=== PATIENT | male | born 1985 | race Caucasian/White ===

== ENCOUNTER 2020-08-10 00:51 | Observation (INO) ==
[2020-08-10 02:04] LABS: Bacteria,Urine Few per hpf (None-Few); Bilirubin,Urine Negative (Negative); Blood,Urine Small (Negative); Clarity,Urine Clear (Clear); Color,Urine Yellow (Yellow); Glucose,Urine (UA) Normal (Normal); Ketones,Urine Negative (Negative); Leukocyte Esterase,Urine Negative (Negative); Nitrite,Urine Negative (Negative); Protein,Urine Negative (Neg-Trace); RBC,Urine 30-50 per hpf (0-3); Specific Gravity,Urine 1.014 (1.010-1.025)
[2020-08-10 02:07] LABS: Basophils % 0.4 %; Eosinophils # 0.5 K/mcL (0.0-0.6); Eosinophils % 5.4 %; Hematocrit 39.7 % (37.5-50.1); Hemoglobin 12.1 g/dL (12.9-16.9); Immature Granulocytes % 0.2 % (0-4); Lymphocytes # 2.9 K/mcL (0.6-4.6); Lymphocytes % 32.3 %; Mean Corpuscular HGB Conc 30.5 g/dL (31.6-35.5); Mean Corpuscular Hemoglobin 24.1 pg (28.0-33.3); Mean Corpuscular Volume 79.1 fL (83.0-100.0); Mean Platelet Volume 7.9 fL (9.4-12.4); Monocytes # 0.6 K/mcL (0.0-1.3); Monocytes % 6.8 %; Platelet Count 669 K/mcL (140-400); Red Blood Count 5.02 M/mcL (4.19-5.50); Red Cell Distribution Width 22.6 % (11.5-14.5); Segmented Neutrophils % 54.9 %; White Blood Count 9.1 K/mcL (4.3-11.1)
[2020-08-10 02:13] LABS: Amphetamine Screen,Urine Positive ng/mL (Cutoff=1000); Barbiturate Screen,Urine Negative ng/mL (Cutoff=200); Benzodiazepines Screen,Urine Negative ng/mL (Cutoff=200); Cannabinoid Screen,Urine Positive ng/mL (Cutoff = 50); Cocaine Screen,Urine Negative ng/mL (Cutoff= 300); Opiate Screen,Urine Negative ng/mL (Cutoff=300); Phencyclidine Screen,Urine Negative ng/mL (Cutoff=25)
[2020-08-10 02:23] LABS: Acetaminophen < 10 mcg/mL (10-20); Alanine Aminotransferase 16 Units/L (7-52); Albumin 4.2 g/dL (3.5-5.7); Albumin/Globulin Ratio 1.2 (1.1-2.2); Alkaline Phosphatase 139 Units/L (34-104); Aspartate Amino Transferase 20 Units/L (13-39); BUN/Creatinine Ratio 8 (6-26); Bilirubin,Direct 0.2 mg/dL (0.0-0.2); Bilirubin,Indirect 0.5 mg/dL (0.0-1.0); Bilirubin,Total 0.7 mg/dL (0.3-1.0); Blood Urea Nitrogen 7 mg/dL (6-20); Calcium 9.7 mg/dL (8.6-10.3); Carbon Dioxide 29 mEq/L (23-29); Chloride 101 mEq/L (98-107); Ethanol < 10 mg/dL (Less than 10); Globulin 3.5 g/dL (2.4-3.5); Glucose 155 mg/dL (70-105); Osmolality,Calculated 287 (280-300); Potassium 3.7 mEq/L (3.5-5.1); Salicylate < 2.5 mg/dL (15.0-30.0); Sodium 138 mEq/L (136-145); Total Protein 7.7 g/dL (6.4-8.9); eGFR For African Americans > 60 (> 60); eGFR For Non-African Americans > 60 (> 60)
[2020-08-10] MEDS ORDERED: *HR* LORazepam 2 MG/ML VIAL ONE (03:57)
[2020-08-10] MEDS ORDERED: *HR* LORazepam 2 MG/ML VIAL IM STA (03:58)
[2020-08-10] MEDS ORDERED: Naloxone 0.4 MG/ML INJ IVP PRN (04:23)
[2020-08-10] MEDS ORDERED: D5% in Water 1,000 ML IVC PRN (07:52)
[2020-08-10] MEDS ORDERED: *HR* Dextrose 50 % in Water (Vial) 50 ML VIAL IVP PRN (07:52)
[2020-08-10] MEDS ORDERED: Dextrose Gel 15 GM/37.5 ML TUBE PO PRN ×2 (07:52)
[2020-08-10] MEDS ORDERED: *HR* LORazepam 2 MG/ML VIAL IVP PRN (08:44)
[2020-08-10 09:37] LABS: VBG HCO3 28 mEq/L (21-27); VBG PCO2 48 mmHg (41-51); VBG PH 7.38 pH Units (7.32-7.42); VBG PO2 153 mmHg (25-50)
[2020-08-10] MEDS: Ampicillin/Sulbactam 3,000 MG in 0.9 % Sodium Chloride Mini Bag 100 ML IVPB SCH ×4 (09:39→23:34)
[2020-08-10 10:08] LABS: Thyroid Stimulating Hormone 2.936 mcIU/mL (0.340-5.600)
[2020-08-10 10:29] LABS: Folate > 22.3 ng/mL (3.0-16.0); Vitamin B12 291 pg/mL (250-1100)
[2020-08-10] MEDS ORDERED: diazePAM 10 MG/2 ML SYRINGE IVP STA (15:29)
[2020-08-10] MEDS ORDERED: Dexmedetomidine HCl 400 MCG/100 ML MLS IVC SCH (15:45)
[2020-08-10] MEDS: Gabapentin 400 MG CAPSULE PO SCH ×2 (17:16→21:05)
[2020-08-10] MEDS: *HR* OxyCODONE/APAP 10/325 TABLET PO PRN ×2 (17:16→23:33)
[2020-08-10] MEDS: *HR* Heparin 5,000 UNIT/ML VIAL SQ SCH (17:49)
[2020-08-10] MEDS ORDERED: diazePAM 10 MG/2 ML SYRINGE IVP PRN (20:36)
[2020-08-10] MEDS ORDERED: Melatonin 3 MG TABLET PO PRN (21:27)
[2020-08-10] MEDS: Nicotine 14 MG PATCH.TD24 TD SCH (21:50)
[2020-08-10] MEDS ORDERED: CloNIDine Patch 0.2 MG PATCH (WEEKLY) TD SCH (23:00)
[2020-08-11] MEDS: Ampicillin/Sulbactam 3,000 MG in 0.9 % Sodium Chloride Mini Bag 100 ML IVPB SCH ×2 (05:33→11:42)
[2020-08-11] MEDS: *HR* OxyCODONE/APAP 10/325 TABLET PO PRN ×2 (05:36→11:42)
[2020-08-11] MEDS: *HR* Heparin 5,000 UNIT/ML VIAL SQ SCH (06:05)
[2020-08-11 06:48] LABS: % Iron Saturation 6 % (20-55); Iron 25 mcg/dL (65-175); Transferrin 282 mg/dL (203-362)
[2020-08-11 07:06] LABS: Ferritin 42 ng/mL (20-250)
[2020-08-11] MEDS ORDERED: *HR* Buprenorphine HCl 8 MG TAB.SUBL SL SCH (09:00)
[2020-08-11] MEDS: Nicotine 14 MG PATCH.TD24 TD SCH (09:08)
[2020-08-11] MEDS: Gabapentin 400 MG CAPSULE PO SCH ×2 (09:09→14:42)
[2020-08-11 11:06] VITALS: BP 118/60
[2020-08-11 11:56] LABS: Basophils % 0.4 %; Eosinophils # 0.5 K/mcL (0.0-0.6); Eosinophils % 7.4 %; Hematocrit 40.2 % (37.5-50.1); Hemoglobin 11.8 g/dL (12.9-16.9); Immature Granulocytes % 0.1 % (0-4); Lymphocytes # 1.5 K/mcL (0.6-4.6); Mean Corpuscular HGB Conc 29.4 g/dL (31.6-35.5); Mean Corpuscular Hemoglobin 23.4 pg (28.0-33.3); Mean Corpuscular Volume 79.6 fL (83.0-100.0); Mean Platelet Volume 8.3 fL (9.4-12.4); Monocytes # 0.4 K/mcL (0.0-1.3); Neutrophils # 4.9 K/mcL (1.6-8.9); Platelet Count 586 K/mcL (140-400); Red Blood Count 5.05 M/mcL (4.19-5.50); Red Cell Distribution Width 22.3 % (11.5-14.5); Segmented Neutrophils % 67.1 %; White Blood Count 7.3 K/mcL (4.3-11.1)
[2020-08-11 12:26] LABS: BUN/Creatinine Ratio 10 (6-26); Blood Urea Nitrogen 8 mg/dL (6-20); Calcium 9.4 mg/dL (8.6-10.3); Carbon Dioxide 23 mEq/L (23-29); Chloride 104 mEq/L (98-107); Glucose 118 mg/dL (70-105); Magnesium 1.8 mg/dL (1.6-2.6); Osmolality,Calculated 283 (280-300); Phosphorous 4.4 mg/dL (2.7-4.5); Potassium 4.1 mEq/L (3.5-5.1); Sodium 137 mEq/L (136-145); eGFR For African Americans > 60 (> 60); eGFR For Non-African Americans > 60 (> 60)
== END 2020-08-11 15:00 | disposition home or self-care (01) ==
LOC: 2ANU 00:51 → EMEROOARM 00:51 → SUATTDRO 03:29 → 2ANU 04:00 → 2NNU 17:54
PROVIDERS: ADMIT Internal Medicine; ATTEND Internal Medicine

== ENCOUNTER 2021-05-03 07:35 | Inpatient (IN) ==
[2021-05-03 13:43] LABS: Influenza A PCR Negative (Negative); Influenza B PCR Negative (Negative); Resp. Syncytial Virus PCR Negative (Negative)
[2021-05-03 13:55] LABS: SARS-CoV-2 by PCR (In House) Negative (Negative)
[2021-05-03] MEDS ORDERED: MOM Conc 10 ML UD.LIQ PO PRN (15:15)
[2021-05-03] MEDS ORDERED: Mag Hydrox/Al Hydrox/Simeth 30 ML UDC PO PRN (15:15)
[2021-05-03] MEDS ORDERED: Haloperidol Lactate 5 MG/ML VIAL IM PRN (15:15)
[2021-05-03] MEDS ORDERED: *HR* LORazepam 1 MG TABLET PO PRN (15:15)
[2021-05-03] MEDS ORDERED: haloperidoL 5 MG TABLET PO PRN (15:15)
[2021-05-03] MEDS ORDERED: *HR* LORazepam 2 MG/ML VIAL IM PRN (15:15)
[2021-05-04] MEDS ORDERED: cloNIDine HCL 0.1 MG TABLET PO PRN (08:34)
[2021-05-04] MEDS: *HR* Buprenorphine HCl 8 MG TAB.SUBL SL SCH (13:56)
[2021-05-04] MEDS: hydrOXYzine pamoate 25 MG CAPSULE PO PRN (21:21)
[2021-05-04] MEDS: traZODone 50 MG TABLET PO PRN (21:21)
[2021-05-05] MEDS: *HR* Buprenorphine HCl 8 MG TAB.SUBL SL SCH (08:33)
[2021-05-05] MEDS: Acetaminophen 325 MG TABLET PO PRN (20:58)
[2021-05-05] MEDS: hydrOXYzine pamoate 25 MG CAPSULE PO PRN (20:58)
[2021-05-05] MEDS: traZODone 50 MG TABLET PO PRN (20:58)
[2021-05-06] MEDS: *HR* Buprenorphine HCl 8 MG TAB.SUBL SL SCH (08:37)
[2021-05-06] MEDS: Nicotine 21 MG PATCH.TD24 TD SCH (08:59)
[2021-05-06] MEDS: traZODone 50 MG TABLET PO PRN (20:32)
[2021-05-06] MEDS: hydrOXYzine pamoate 25 MG CAPSULE PO PRN (20:32)
[2021-05-06] MEDS: Acetaminophen 325 MG TABLET PO PRN (20:32)
[2021-05-07] MEDS: *HR* Buprenorphine HCl 8 MG TAB.SUBL SL SCH (08:38)
[2021-05-07] MEDS: Nicotine 21 MG PATCH.TD24 TD SCH (08:39)
[2021-05-07] MEDS: traZODone 50 MG TABLET PO PRN (20:31)
[2021-05-07] MEDS: hydrOXYzine pamoate 25 MG CAPSULE PO PRN (20:31)
[2021-05-07] MEDS: Acetaminophen 325 MG TABLET PO PRN (20:31)
[2021-05-08] MEDS: Nicotine 21 MG PATCH.TD24 TD SCH (08:47)
[2021-05-08] MEDS: *HR* Buprenorphine HCl 8 MG TAB.SUBL SL SCH (08:47)
[2021-05-08] MEDS: Acetaminophen 325 MG TABLET PO PRN (20:37)
[2021-05-08] MEDS: hydrOXYzine pamoate 25 MG CAPSULE PO PRN (20:37)
[2021-05-08] MEDS: traZODone 50 MG TABLET PO PRN (20:38)
[2021-05-09] MEDS: *HR* Buprenorphine HCl 8 MG TAB.SUBL SL SCH (08:39)
[2021-05-09] MEDS: Nicotine 21 MG PATCH.TD24 TD SCH (08:39)
[2021-05-09] MEDS: Acetaminophen 325 MG TABLET PO PRN (20:33)
[2021-05-09] MEDS: hydrOXYzine pamoate 25 MG CAPSULE PO PRN (20:33)
[2021-05-09] MEDS: traZODone 50 MG TABLET PO PRN (20:33)
[2021-05-10] MEDS: Acetaminophen 325 MG TABLET PO PRN (08:01)
[2021-05-10] MEDS: *HR* Buprenorphine HCl 8 MG TAB.SUBL SL SCH (09:05)
[2021-05-10] MEDS: Nicotine 21 MG PATCH.TD24 TD SCH (09:06)
[2021-05-10 09:49] VITALS: BP 116/72; PULSE 111; TEMP 97.8; O2SAT 99
== END 2021-05-10 19:15 | disposition home or self-care (01) | DRG 751 ==
LOC: EMEROOARM 07:35 → 1ANU 15:12
PROVIDERS: ADMIT Psychiatry & Neurology Psychiatry; ATTEND Psychiatry & Neurology Psychiatry